=== PATIENT | male | born 2000 | race Caucasian/White ===

== ENCOUNTER 2022-12-01 07:37 | Outpatient (CLI) | payer OTHER, SELFPAY ==
[2022-12-01 09:05] LABS: Glucose Fasting 95 mg/dL (74-109)
[2022-12-01 10:16] LABS: Glucose 1 Hour 202 mg/dL
[2022-12-01 11:27] LABS: Glucose 2 Hour 159 mg/dL
== END 2022-12-01 07:38 | disposition home or self-care (01) ==
LOC: LAB 07:50
PROVIDERS: Visit Provider Internal Medicine Pulmonary Disease
DX: E84.0 Cystic fibrosis with pulmonary manifestations (principal)
CPT/HCPCS: 36415; 82951